=== PATIENT | male | born 1990 | race Caucasian/White ===

== ENCOUNTER 2016-11-26 16:08 | Emergency (ER) | payer SELFPAY ==
--- NOTE | 2016-12-05 18:05 | ER ---
ADMIT: 11/26/2016 RM/LOC: ER [facility] MR#: [id number] [address] [id number] FRANSISCA TRAVIS J [address] [place] [address] Emergency Room Report SEX: M AGE: 25 : 1990 DATE: 11/26/2016 ADDENDUM: A 25-year-old male, comes in complaining of some pain in his arms and legs. He states that he believes it has been going on for couple of weeks and several days to a week before that, he found some ticks on him and he is concerned of possible tick-borne disease. He denies any rashes. Not had any fevers or chills, and does not really fatigued at this time. On examination, his physical exam was unremarkable. I did check a CBC and BMP with sedimentation rate and CRP. The results of those tests were unremarkable. Did draw lab screening test for tick-borne illnesses and those are pending at this time. The patient is discharged home with a diagnosis of some anxiety, which he admits he has and to follow up with [facility]. He was set up to see them tomorrow, but I recommend that if he is in the condition he is now, which is stable that he will be scheduled for early middle in the next week when the results of the tick borne screening test would be available. He is to use anti-inflammatories for the next several days and return to the ER for any concerning symptoms. Yousif Malone MD/ willard JOB #: [id number] CC: Yousif Malone MD, Attending Physician Ashanti Suárez, Family Physician
== END 2016-11-26 18:39 | disposition home or self-care (01) ==
LOC: ER 16:08
DX: F41.9 Anxiety disorder, unspecified (principal)